=== PATIENT | female | born 1985 | race Caucasian/White ===

== ENCOUNTER 2023-11-09 21:08 | Emergency (ER) | payer MEDICAID ==
[~2023-11-09] VITALS: Ht 167.6 cm; Wt 113.6 kg
[2023-11-09 23:47] VITALS: BP 139/85; PULSE 78; RESP 16; TEMP 98.1; O2SAT 97
== END 2023-11-09 23:51 | disposition home or self-care (01) ==
LOC: ER 21:09
DX: H20.9 Unspecified iridocyclitis (principal)
CPT/HCPCS: 99283; J7030